=== PATIENT | female | born 1975 | race Caucasian/White ===

== ENCOUNTER 2017-06-20 14:41 | Emergency (ER) | payer MEDICAID ==
[~2017-06-20] VITALS: Ht 154.9 cm; Wt 86.2 kg
[~2017-06-20 14:41] MED LIST: AMOXIL500 MG PO; CIPRO 500MG TA500 MG PO; FLEXERIL10 M1 PO; KEFLEX 500MG.500 MG PO; LISINOPRIL 5MG T5 MG PO; LORTAB 5/500 501 TAB PO; METFORMIN 500M500 MG PO; METFORMIN ER500 MG PO; NAPROSYN 500MG500 MG PO; PRILOSEC40 MG PO; TAMIFLU 75MG CA75 MG PO; TESSALON PERLE100 MG PO; TRAMADOL 50MG T50 MG PO; VICODIN 5/500 T1 TAB PO; VOLTAREN75 MG PO
--- OUTSIDE RECORDS SUMMARY | 2017-06-20 14:56 | External Medical Summary Rpt ---
Author Author [employer]ICA Bah, [employer] Organization [employer] Address Unknown Phone Unavailable
--- OUTSIDE RECORDS SUMMARY | 2017-06-20 14:56 | External Medical Summary Rpt | CCD ---
Demographics Preferred Language Turkmen Marital Status Unknown Baptism Affiliation Unknown Race Unknown Ethnic Group Unknown Author Author [employer] Address Unknown Phone Immunization No patient found.
--- OUTSIDE RECORDS SUMMARY | 2017-06-20 14:56 | External Medical Summary Rpt | CCD ---
Author Author , YESICA ROBERT Address Unknown Phone [email or web address] Purpose Continuity of Care Document - 01-20-2017 through 2016 Allergies, Adverse Reactions, Alerts Clinical Alert Notifications Alert Diabetes: no A1C in the last 6 months Diabetes: no eye exam in the last 365 days Diabetes: no influenza vaccine in the last 365 days Diabetes: no lipid panel in the last 365 days Diabetes: no urine protein screening in the last 365 days Medications Na ND Rx Da Fi Fi Am Da Di Ph RX Ph St me C No te ll ll ou ys ag ar # ys at rm s nt no ma ic us Or Da si cy ia de te s n re d SE 68 10 11 30 30 00 WA Ac RT 64 -1 -1 .0 00 L- ti RA 50 7- 0- 00 07 MA ve LI 52 20 20 43 RT NE 15 17 17 57 4 26 PH HC AR L MA 25 CY MG #4 93 TA BL ET ME 68 10 11 18 90 00 WA Ac TF 64 -1 -1 0. 00 L- ti OR 50 7- 0- 00 07 MA ve MA 54 20 20 0 43 RT N 55 17 17 57 HC 9 25 PH L AR 1, MA 00 CY 0 MG #4 93 TA BL ET GA 69 06 07 90 30 00 KR Ac BA 09 -2 -2 .0 00 OG ti PE 70 5- 1- 00 06 ER ve NT 81 20 20 03 IN 41 17 17 04 PH 2 37 AR 30 MA 0 CY MG L- CA 70 PS 9 UL E ME 65 06 07 60 30 00 KR Ac TF 86 -2 -1 .0 00 OG ti OR 20 0- 4- 00 06 ER ve MA 01 20 20 03 N 00 17 17 04 PH HC 5 36 AR L MA 1, CY 00 0 L- MG 70 9 TA BL ET GA 69 05 06 90 30 00 KR Ac BA 09 -2 -2 .0 00 OG ti PE 70 8- 3- 00 06 ER ve NT 81 20 20 02 IN 41 17 17 43 PH 2 85 AR 30 MA 0 CY MG L- CA 70 PS 9 UL E ME 65 05 06 60 30 00 KR Ac TF 86 -2 -2 .0 00 OG ti OR 20 8- 3- 00 06 ER ve MA 01 20 20 02 N 00 17 17 43 PH HC 5 84 AR L MA 1, CY 00 0 L- MG 70 9 TA BL ET
--- OUTSIDE RECORDS SUMMARY | 2017-06-20 14:56 | External Medical Summary Rpt | CCD ---
Demographics Preferred Language Greek Marital Status Unknown Zoroastrian Affiliation Unknown Race Unknown Ethnic Group Unknown Author Author YESICA Address Unknown Phone Immunization No patient found.
--- OUTSIDE RECORDS SUMMARY | 2017-06-20 14:56 | External Medical Summary Rpt | CCD ---
Author Author , YESICA MALDONADOTYLER Address Unknown Phone [email or web address] Purpose Continuity of Care Document - 01-20-2017 through 2016 Medications Na ND Rx Da Fi Fi [...] 50 7- 0- 00 07 MA ve AZ 54 20 20 0 43 RT N [...] 20 0- 4- 00 06 ER ve AZ 01 20 20 03 N 00 17 17 04 PH HC 5 36 AR L MA 1, CY 00 0 L- MG 70 9 TA BL ET ME 65 05 06 60 30 00 KR Ac TF 86 -2 -2 .0 00 OG ti OR 20 8- 3- 00 06 ER ve AZ 01 20 20 02 N 00 17 [...]
--- OUTSIDE RECORDS SUMMARY | 2017-06-20 14:56 | External Medical Summary Rpt | CCD ---
Author Author , YESICA ROBERT Address Unknown Phone [email or web address] Purpose Continuity of Care Document - 01-20-2017 [...] 50 7- 0- 00 07 MA ve CA 54 20 20 0 43 RT N [...] 20 0- 4- 00 06 ER ve CA 01 20 20 03 N 00 17 [...] 20 8- 3- 00 06 ER ve CA 01 20 20 02 N 00 17 17 43 PH HC 5 84 AR L MA 1, CY 00 0 L- MG 70 9 TA BL ET
--- OUTSIDE RECORDS SUMMARY | 2017-06-20 14:56 | External Medical Summary Rpt | CCD ---
Author Author , YESICA MALDONADOTYLER Address Unknown Phone [email or web address] Purpose Continuity of Care Document - 01-20-2017 [...] 50 7- 0- 00 07 MA ve MN 54 20 20 0 43 RT N [...] 20 0- 4- 00 06 ER ve MN 01 20 20 03 N 00 17 17 04 PH HC 5 36 AR L MA 1, CY 00 0 L- MG 70 9 TA BL ET ME 65 05 06 60 30 00 KR Ac TF 86 -2 -2 .0 00 OG ti OR 20 8- 3- 00 06 ER ve MN 01 20 20 02 N 00 17 [...]
--- NOTE | 2017-06-20 15:18 | Urgent Treatment Center Report ---
History of Present Issue Date/Time Seen by Provider 06/20/17 1504 Visit Reason Pt arrived:Walked Presenting Problem:PT C/O HEADACHE SINCE MONDAY. PT HAS TRIED IBUPROFEN,TYLENOL, AND SINUS MEDICINE WITHOUT ANY RELIEF. Location if Accident: Onset of symptoms date/time:/ or onset unknown for:MEDICAL HX UNKNOWN Have you (or family members/close friends) recently traveled outside the [place]? N If Yes, where/when: Have you had exposure to infectious disease within the past month? TB? Other? Specify: Patient state that she has a history of Migraine headaches States that she has been under alot of stress lately and she feels like she is having a tension migraine State that she has take over the counter Ibuprofen and Tylenol and Sinus medication to try to get some relief but nothing has worked so she came in today to get seen and treated ALLERGIES Coded Allergies: No Known Allergies (06/20/17) Home Medications Active Scripts METFORMIN HCL (Metformin 500MG) 500 MG PO BID 30 Days Prov: 09/07/10 History Medical History General CAD? No Angina: No VA: No Hypertension? Yes Hyperlipidemia? No CHF? No DVT? No PE? No COPD? No Asthma? No Anemia? No GERD? No Gastric ulcers? No GI Bleed? No Hernia? No Thyroid Problems? No Hypothyroidism? No CVA? No Seizures? No Diabetes? Yes Insulin Dependent: No Insulin Pump: No Home FSBS? Yes Renal Insuffiency? No UTI? No Stones? No BPH? No GB Disease: No Nephritic Syndrome? No Asplenia? No Hepatitis? No Sickle Cell Disease? No Arthritis? No Migraines? No Cataracts? No Glaucoma? No MRSA? No HIV? No TB? No Anxiety? No Depression? No Cancer? No More? No Immunization HX DT/Tetanus NOT SURE Surgical Hx Previous Surgery?Y Tubal Ligation Social History Smoking Hx Smoker: Never Smoker Tobacco: No Alcohol Alcohol: No Review of Systems All Other Systems Reviewed and Negative Psychiatric/Neurological headache Physical Exam Vital Signs Vital Signs Date Time Temp Pulse Resp B/P Pulse O2 O2 Flow FiO2 Ox Delivery Rate 06/20 1518 18 06/20 1501 98.5 83 20 149/103 100 General Appearance normal appearance, WD/WN, no apparent distress Eye Exam - bilateral eye normal exam, bilateral eye PERRL, bilateral eye EOMI Respiratory Status Yes: trachea midline, chest symmetrical, non tender chest. No: respiratory distress. Lung Sounds bilateral: normal breath sounds, lungs clear. Cardiovascular normal exam, regular rate/rhythm, no peripheral edema Neurologic alert, normal exam, oriented x 3 Medical Decision Making LABS/Meds/Orders Pt receiving controlled substance in ED? No Results/Orders Current Medication Orders Sig/Agnieszka Start time Last Medication Dose Route Stop Time Status Admin Diphenhydramine HCl 50 MG ONCE ONE 06/20 1515 DC 06/20 IM 06/20 1516 1517 Ketorolac 60 MG ONCE ONE 06/20 1515 DC 06/20 Tromethamine IM 06/20 151 1518 Metoclopramide HCl 10 MG ONCE ONE 06/20 1515 DC 06/20 IM 06/20 151 1517 Ketorolac 0 .STK-MED ONE 06/20 1510 DC Tromethamine .ROUTE Diphenhydramine HCl 0 .STK-MED ONE 06/20 1509 DC .ROUTE Metoclopramide HCl 0 .STK-MED ONE 06/20 1509 DC .ROUTE Progress [facility] Progress Notes Comment Patient state that medication helped with pain states that pain is almost gone Departure Departure Time of Disposition 1529 Disposition DC Home or Self Care(routine) Clinical Impression Primary Impression: Migraine Qualifiers: Migraine type: unspecified Status migrainosus presence: without status migrainosus Intractability: intractable Qualified Code: G43.919 - Migraine, unspecified, intractable, without status migrainosus Condition STABLE Referrals [facility] Patient Instructions DI for Migraine, Migraine -- Adult Additional Instructions Over the counter Motrin or Tylenol as needed for Migraine Follow up with family doctor Return if needed Discharge Counseling Counseled pt/family regarding diagnosis, test results, medications/RX, home care, follow up needs Prescriptions Current Visit Scripts Ibuprofen (Ibuprofen 800MG) 800 MG PO QIDP PRN pain #30 TAB at 1530
[2017-06-20] MEDS ORDERED: IBUPROFEN800 MG PO (15:30)
[2017-06-20 15:34] VITALS: BP 142/95
== END 2017-06-20 15:35 | disposition home or self-care (01) ==
LOC: ER 14:41 → UTC 14:54 → ER 14:54 → UTC 15:35
DX: G43.919 Migraine, unspecified, intractable, without status migrainosus (principal); I10 Essential (primary) hypertension; E11.9 Type 2 diabetes mellitus without complications